=== PATIENT | male | born 1980 | race Two or more races ===

== ENCOUNTER 2017-04-20 17:03 | Emergency (ER) | payer SELFPAY ==
[~2017-04-20] VITALS: Ht 165.1 cm; Wt 93.0 kg
[2017-04-20 17:13] VITALS: BP 133/83
== END 2017-04-20 20:00 | disposition left against medical advice (07) ==
LOC: ER 18:32
DX: M25.579 Pain in unspecified ankle and joints of unspecified foot (principal); Z53.21 Procedure and treatment not carried out due to patient leaving prior to being seen by health care provider